=== PATIENT | female | born 1985 ===

== ENCOUNTER 2018-02-07 22:47 | Inpatient (IN) | payer BC ==
[~2018-02-07] VITALS: Ht 165.1 cm; Wt 87.7 kg
[~2018-02-07 22:47] MED LIST: MOTRIN 800800 MG/TAB PO; PERCOCET 325 MG1 TA2 PO; PRENATAL VITAMI1 TAB PO; TUMS500 MG PO; VITAMINC1000TA
[2018-02-07 23:15] VITALS: BP 132/74; PULSE 71; TEMP 97.5
[2018-02-07] MEDS ORDERED: PRENATAL MVI (23:36)
[2018-02-07] MEDS ORDERED: EZFE 200200 MG PO (23:36)
[2018-02-07 23:45] VITALS: BP 129/71; PULSE 73
[2018-02-07 23:46] LABS: BASO % 0.2 % (0.0-2.0); EOS % 0.3 % (0-4.0); GRAN # 9.1 (1.4-6.5); GRAN % 69.9 % (42.2-75.2); HEMOGLOBIN 11.2 g/dl (12.5-16.0); LYMPH # 2.7 (1.2-3.4); LYMPH % 21.1 % (20.0-51.0); MEAN CELL VOLUME 85 fl (80.0-100.0); MEAN CORPUSCULAR HEMOGLOBIN 29 pg (27.0-31.0); MEAN CORPUSCULAR HGB CONC 34 g/dl (33.0-37.0); MEAN PLATELET VOLUME 12.6 fl (7.4-10.4); MONO % 7.7 % (1.7-9.3); PLATELET COUNT 180 K/mm3 (130-400); RED BLOOD COUNT 3.88 M/mm3 (4.10-5.30); REDCELL DISTRIBUTION WIDTH-CV 12.6 % (11.5-14.5)
[2018-02-07 23:47] LABS: HEMATOCRIT 32.8 % (37.0-47.0)
[2018-02-08] VITALS (46 sets, daily range): BP systolic 95–136; BP diastolic 53–85; PULSE 60–88; TEMP 97.5–98.2
[2018-02-09 08:34] VITALS: BP 118/75; PULSE 80; TEMP 97.9
[2018-02-09 10:00] VITALS: BP 120/67; PULSE 82; TEMP 98.4
[2018-02-09] MEDS ORDERED: MOTRIN 800800 MG/TAB PO (10:33)
[2018-02-09] MEDS ORDERED: PERCOCET 325 MG1 TA2 PO (10:33)
== END 2018-02-09 13:48 | disposition home or self-care (01) | DRG 775 ==
LOC: LDRO 22:47 → LDR 23:26 → OB 02-08 12:40
PROVIDERS: Obstetrics & Gynecology
PROC: 10E0XZZ Delivery of Products of Conception, External Approach (ICD-10-PCS; principal; 2018-02-08)
PROC: 0HQ9XZZ Repair Perineum Skin, External Approach (ICD-10-PCS; 2018-02-08)
DX: O42.02 Full-term premature rupture of membranes, onset of labor within 24 hours of rupture (principal); O70.0 First degree perineal laceration during delivery; Z37.0 Single live birth; Z3A.38 38 weeks gestation of pregnancy
CPT/HCPCS: J2405; J2590; J7120